=== PATIENT | female | born 1950 | race Caucasian/White ===

== ENCOUNTER 2018-04-11 12:15 | Emergency (ER) | payer MEDICARE, BC ==
[~2018-04-11] VITALS: Ht 152.4 cm; Wt 73.0 kg
[~2018-04-11 12:15] MED LIST: ESTR1TAB19 PO; LEVO75TA PO; LORA10TA65 PO; TRAM50TA2 PO
[2018-04-11] MEDS ORDERED: diatrozoate meglu/diatrozoate sod (37% iodine) 120ML oral solution ONE (14:48)
[2018-04-12 00:08] VITALS: BP 101/54
== END 2018-04-12 00:09 | disposition home or self-care (01) ==
LOC: ER 12:15
DX: Z43.1 Encounter for attention to gastrostomy (principal); I10 Essential (primary) hypertension; K21.9 Gastro-esophageal reflux disease without esophagitis; E03.9 Hypothyroidism, unspecified; Z98.890 Other specified postprocedural states; Z88.6 Allergy status to analgesic agent; Z88.5 Allergy status to narcotic agent; Z79.899 Other long term (current) drug therapy
CPT/HCPCS: 43752; 71045; 99284; Q9963

== ENCOUNTER 2018-05-12 13:00 | Outpatient (CLI) | payer BC, MEDICARE, OTHER | END 2018-05-12 23:59 | disposition short-term general hospital (02) | LOC: 64 CT 13:00 | PROVIDERS: ATTEND Internal Medicine | DX: J96.00 Acute respiratory failure, unspecified whether with hypoxia or hypercapnia (principal); J90 Pleural effusion, not elsewhere classified; N20.0 Calculus of kidney; J45.909 Unspecified asthma, uncomplicated; Z93.1 Gastrostomy status; Z90.710 Acquired absence of both cervix and uterus; Z85.818 Personal history of malignant neoplasm of other sites of lip, oral cavity, and pharynx | CPT/HCPCS: 71250 ==